=== PATIENT | male | born 1980 | race Caucasian/White ===

== ENCOUNTER 2017-05-01 07:29 | Emergency (ER) | payer OTHER ==
[2017-05-01] MEDS ORDERED: Azithromycin TAB* 250 MG PO ONE (08:15)
[2017-05-01] MEDS ORDERED: cefTRIAXone VIAL(*) 250 MG VIAL IM ONE (08:15)
--- NOTE | 2017-05-01 08:24 | UC ---
UC General HPI - HPI Summary HPI Summary: pt is c/o sudden fatigue, achy and fever 101 this am. also notes a "discomfort" with urination with this. states "not pain or burning" jusy a vague discomfort. aslo, has noticed "a crwamy white penile discharge" a couple of times within the past 2 weeks but none now. denies any new sexual partners plus risk/concern for std but has read that you can have this it have it be dormant. denies any penile lesions, abd pain, v/d. - History of Current Complaint Chief Complaint: UCGU Stated Complaint: FEVER,NAUSEA Time Seen by Provider: 05/01/17 07:51 Hx Obtained From: Patient Onset/Duration: Gradual Onset Onset Severity: Mild Pain Intensity: 2 Aggravating: nothing Alleviating: nothing Associated Signs & Symptoms: Positive: Dysuria, Fever, Nausea. Negative: Abdominal Pain, Cough, Diarrhea, Diaphoresis, Headache, SOB, Vomiting Similar Episode/Dx as: NA - Allergy/Home Medications Allergies/Adverse Reactions: Allergies Allergy/AdvReac Type Severity Reaction Status Date / Time Penicillins Allergy Unknown Verified 05/01/17 07:43 Reaction Details molds Allergy Wheezing Uncoded 05/01/17 07:42 PMH/Surg Hx/FS Hx/Imm Hx Previously Healthy: Yes Other History Of: Negative For: HIV, Hepatitis B, Hepatitis C - Surgical History Surgical History: Yes Surgery Procedure, Year, and Place: Hernia surgery as an infant.; vasectomy 2011 - Family History Known Family History: Positive: None - Social History Occupation: Student Lives: With Family Alcohol Use: None Substance Use Type: None, Prescribed Smoking Status (MU): Never Smoked Tobacco - Immunization History Most Recent Influenza Vaccination: no Vaccination Up to Date: Yes Review of Systems Constitutional: Fever, Chills, Fatigue Skin: Negative Eyes: Negative ENT: Negative Respiratory: Negative Cardiovascular: Negative Gastrointestinal: Negative Genitourinary: Dysuria, Vaginal/Penile Discharge Motor: Negative Neurovascular: Negative Musculoskeletal: Negative Neurological: Negative Is Patient Immunocompromised?: No All Other Systems Reviewed And Are Negative: Yes Physical Exam Triage Information Reviewed: Yes Appearance: Well-Appearing Vital Signs: Initial Vital Signs Temp 99.5 F 05/01/17 07:44 Pulse 105 05/01/17 07:44 Resp 20 05/01/17 07:44 BP 98/72 05/01/17 07:44 Pulse Ox 98 02/19/18 07:44 Vital Signs Reviewed: Yes Eye Exam: Normal ENT: Positive: Normal ENT inspection Neck: Positive: Supple, Nontender, No Lymphadenopathy Respiratory Exam: Normal Respiratory: Positive: Lungs clear, Normal breath sounds, No respiratory distress Cardiovascular: Positive: No Murmur, Pulses Normal, Tachycardia Abdomen Description: Positive: Nontender, No Organomegaly, Soft. Negative: CVA Tenderness (R), CVA Tenderness (L), Distended, Guarding Bowel Sounds: Positive: Present Neurological: Positive: Alert Psychological: Positive: Age Appropriate Behavior Skin Exam: Normal - : testicles down and non tender, cords non tender, inguinal canals patent, no penile lesions or urethral discharge. no inguinal adenopathy. Diagnostics - Laboratory Diagnostic Studies Completed/Ordered: rapid flu=neg. u/a= + leuks with culture pending. gc/chlamydia are pending. Course/Dx - Course Course Of Treatment: exam is unremarkable. pt denies risk for std but would like testing. pt agrees to presumptive tx for gc/chlamydia given hx and pe. the pcn allergy is an "allergy to mold". pt has taken amoxicillin with no reactions in his past thus will tx with zithromax po and rocephine im. rapid flu=neg. urineculture/gc/chalmydia pending. - Differential Dx - Multi-Symptom Provider Diagnoses: Urethritis. Discharge - Discharge Plan Condition: Stable Disposition: HOME Patient Education Materials: Nonspecific Urethritis in Men (ED) Referrals: Jason Salinas MD [Medical Doctor] - 5 Days
[2017-05-01] MEDS ORDERED: Lidocaine 1% MPF* 2 ML VIAL ONE (09:33)
[2017-05-01 09:59] VITALS: BP 115/70
--- NOTE | 2017-05-03 14:40 | ED ---
Progress - Progress Note Progress Note: I have called in keflex antibiotic for possible E coli uti. Pt will need to f/u with pcp to see if urology if needed. Course/Dx - Course Course Of Treatment: exam is unremarkable. pt denies risk for std but would like testing. pt agrees to presumptive tx for gc/chlamydia given hx and pe. the pcn allergy is an "allergy to mold". pt has taken amoxicillin with no reactions in his past thus will tx with zithromax po and rocephine im. rapid flu=neg. urineculture/gc/chalmydia pending.
== END 2017-05-01 10:51 | disposition home or self-care (01) ==
LOC: UCCORT 07:29
DX: N34.2 Other urethritis (principal); B96.20 Unspecified Escherichia coli [E. coli] as the cause of diseases classified elsewhere
CPT/HCPCS: 81003; 87077; 87086; 87186; 87491; 87502; 87591; 96372; 99212; A9270-GY; G0463; J0696

== ENCOUNTER 2017-12-22 07:18 | Emergency (ER) | payer OTHER ==
[2017-12-22 07:32] VITALS: BP 131/86
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
== END 2017-12-22 07:58 | disposition home or self-care (01) ==
LOC: UCCORT 07:18
DX: M62.830 Muscle spasm of back (principal); Z88.0 Allergy status to penicillin
CPT/HCPCS: 99212; G0463

== ENCOUNTER 2018-08-04 17:40 | Emergency (ER) | payer OTHER ==
--- OUTSIDE RECORDS SUMMARY | 2018-08-04 18:17 | XMS REPORT | Continuity of Care Document ---
:1980 External Reference #:[id number] Author Name Sammie Sumner Care Team Providers Name Role Phone Troy Faith MD Primary Care Physician Unavailable Payers Date Identification Numbers Payment Provider Subscriber Effective: 2016 Policy Number: [id number] Peña Gordillo PayID: [id number] [address] [place] [address] Advance Directives Description No Information Available Problems Active Problems Provider Date Asthma without status asthmaticus Troy Faith M.D. 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 Tobacco Use Start: Unknown Never Smoked Cigarettes Smoking Status Reviewed: 07/17/18 Never Smoked Cigarettes ETOH Use Rarely consumes alcohol Tobacco Use Start: Unknown Patient has never Chewed tobacco for smoked 15 years Recreational Drug Use Denies Drug Use Exercise Type/Frequency Exercises sporadically Allergies, Adverse Reactions, Alerts Active Allergies Reaction Severity Comments Date Penicillin hasnt been given to him due to history 05/02/2016 of allergy to mold Medications Active Medications SIG Qnty Indications Ordering Provider Date Baclofen take 1 tablet by 30tabs M54.5 Cristino Lam, 02/15/2018 10mg Tablets mouth twice M.D. daily Ibuprofen 4 po as needed 60tabs Cristino Lam III 200mg Tablets E., MD Singulair 1 by mouth every 30tabs Cristino Lam, 10mg Tablets day M.D. Ventolin HFA 2 puffs by mouth 8gm Cristino Lam, four times a day M.D. 108(90Base) mcg/Act as needed Aerosol Symbicort 2 puff twice a 6gm Cristino Lam, day M.D. 160-4.5mcg/Act Aerosol Tizanidine HCL take 1 tablet by 30tabs Cristino Lam, 4mg mouth every 8 M.D. Tablets hours as needed Multi Vitamin 1 by mouth every Unknown Tablets day History Medications Kratom 1 and 1/2 teaspoons Deny Ridley, 05/02/2016 - Powder daily. 02/15/2018 Greenvibrance uses once daily. Unknown - 02/15/2018 Aleve as needed Unknown - 220mg Tablets 02/15/2018 Albuterol Sulfate 1-2 puffs every 4 Unknown - 2mg Tablets hours as needed sob 02/15/2018 Ketotifen Fumarate Instill 1-2 Drops Unknown - 0.025% In Each Eye Q 12 H 02/15/2018 Solution prn Tizanidine HCL 1 by mouth twice Unknown - 4mg Capsules daily prn 02/19/2018 Cyclobenzaprine HCL take 1 tab by mouth Unknown - 10mg 2-3 times a day as 02/19/2018 Tablets needed Immunizations Description No Information Available Vital Signs Date Vital Result Comment 07/17/2018 9:03am Height 70 inches 5'10" Weight 183.00 lb Heart Rate 84 /min BP Systolic Sitting 126 mmHg left upper arm regular BP Diastolic Sitting 84 mmHg left upper arm regular Respiratory Rate 12 /min O2 % BldC Oximetry 97 % BMI (Body Mass Index) 26.3 kg/m2 06/08/2018 2:41pm Height 70 inches 5'10" Weight 185.00 lb Heart Rate 72 /min BP Systolic Sitting 120 mmHg BP Diastolic Sitting 76 mmHg Respiratory Rate 18 /min Pain Level 5 O2 % BldC Oximetry 98 % BMI (Body Mass Index) 26.5 kg/m2 05/08/2018 4:27pm Height 69 inches 5'9" Weight 188.00 lb Heart Rate 75 /min BP Systolic Sitting 117 mmHg BP Diastolic Sitting 74 mmHg O2 % BldC Oximetry 97 % BMI (Body Mass Index) 27.8 kg/m2 04/11/2018 4:31pm Height 69 inches 5'9" Weight 185.00 lb Heart Rate 82 /min BP Systolic Sitting 116 mmHg BP Diastolic Sitting 78 mmHg Body Temperature 97.7 F O2 % BldC Oximetry 98 % BMI (Body Mass Index) 27.3 kg/m2 03/29/2018 4:30pm Height 69 inches 5'9" Weight 186.50 lb Heart Rate 68 /min BP Systolic Sitting 122 mmHg reg adult cuff left arm BP Diastolic Sitting 90 mmHg reg adult cuff left arm Respiratory Rate 16 /min O2 % BldC Oximetry 98 % at rest on room air BMI (Body Mass Index) 27.5 kg/m2 02/15/2018 4:23pm Height 69 inches 5'9" Weight 181.00 lb Heart Rate 73 /min BP Systolic Sitting 120 mmHg BP Diastolic Sitting 80 mmHg Body Temperature 98.2 F O2 % BldC Oximetry 96 % BMI (Body Mass Index) 26.7 kg/m2 07/07/2017 7:16am Height 70 inches 5'10" Weight 188.00 lb Heart Rate 64 /min BP Systolic Sitting 112 mmHg BP Diastolic Sitting 82 mmHg Respiratory Rate 14 /min O2 % BldC Oximetry 98 % BMI (Body Mass Index) 27.0 kg/m2 Neck Circumference in inches 15.75 05/02/2016 10:44am Height 70 inches 5'10" Weight 179.50 lb Heart Rate 72 /min BP Systolic Sitting 102 mmHg BP Diastolic Sitting 74 mmHg Respiratory Rate 20 /min Pain Level 2 O2 % BldC Oximetry 98 % BMI (Body Mass Index) 25.8 kg/m2 Results Test Date Facility Test Result H/L Range Note CBC Auto Diff 05/26/2018 [facility] White Blood 5.9 10^3/uL N 3.5-10.[address] [place] [address] [phone] Red Blood Count 4.95 10^6/uL N 4.18-5.48 Hemoglobin 15.3 g/dL N 14.0-18.0 Hematocrit 45 % N 36-46 Mean Corpuscular Volume 91 fL N 80-94 Mean Corpuscular Hemoglobin 31 pg N 27-31 Mean Corpuscular HGB Conc 34 g/dL N 31-36 Red Cell Distribution Width 13 % N 10.5-15 Platelet Count 251 10^3/uL N 150-450 Mean Platelet Volume 6.9 fL Low 7.4-10.4 Abs Neutrophils 3.1 10^3/uL N 1.5-7.7 Abs Lymphocytes 2.0 10^3/uL N 1.0-4.8 Abs Monocytes 0.5 10^3/uL N 0-0.8 Abs Eosinophils 0.2 10^3/uL N 0-0.6 Abs Basophils 0 10^3/uL N 0-0.2 Abs Nucleated RBC 0 10^3/uL Granulocyte % 53.3 % Lymphocyte % 33.8 % Monocyte % 8.7 % Eosinophil % 3.4 % Basophil % 0.8 % Nucleated Red Blood Cells % 0.1 Comp Metabolic Panel 05/26/2018 [facility] Sodium 138 mmol/L N 135-145 [address] [place] [address] [phone] Potassium 4.6 mmol/L N 3.5-5.0 Chloride 104 mmol/L N 101-111 Co2 Carbon Dioxide 26 mmol/L N 22-32 Anion Gap 8 mmol/L N 2-11 Glucose 99 mg/dL N 70-100 Blood Urea Nitrogen 14 mg/dL N 6-24 Creatinine 1.15 mg/dL N 0.67-1.17 BUN/Creatinine Ratio 12.2 N 8-20 Calcium 9.6 mg/dL N 8.6-10.3 Total Protein 7.4 g/dL N 6.4-8.9 Albumin 4.8 g/dL N 3.2-5.2 Globulin 2.6 g/dL N 2-4 Albumin/Globulin Ratio 1.8 N 1-3 Total Bilirubin 0.40 mg/dL N 0.2-1.0 Alkaline Phosphatase 68 U/L N 34-104 Alt 39 U/L N 7-52 Ast 25 U/L N 13-39 Egfr Non- 72.0 >60 Egfr 87.1 >60 1 Laboratory test finding 05/26/2018 [facility] Amylase 46 U/L N 29-[address] [place] [place] [address] [phone] Erythrocyte Sed Rate 1 mm/Hr N 0-15 2 C Reactive Protein < 1.00 mg/L N <8.01 Lipid Profile 05/26/2018 [facility] Triglycerides 111 mg/dL 3 (Trig/Chol/HDL) [address] [place] [address] [phone] Cholesterol 137 mg/dL 4 HDL Cholesterol 47.6 mg/dL 5 LDL Cholesterol 67 mg/dL 6 1 Because ethnic data is not always readily available, this report includes an eGFR for both -Americans and non- Americans. The National Kidney Disease Education Program (NKDEP) does not endorse the use of the MDRD equation for patients that are not between the ages of 18 and 70, are , have extremes of body size, muscle mass, or nutritional status, or are non- or non-. According to the National Kidney Foundation, irrespective of diagnosis, the stage of the disease is based on the level of kidney function: Stage Description GFR(mL/min/1.73 m(2)) 1 Kidney damage with normal or decreased GFR 90 2 Kidney damage with mild decrease in GFR 60-89 3 Moderate decrease in GFR 30-59 4 Severe decrease in GFR 15-29 5 Kidney failure <15 (or dialysis) 2 Test Performed by: [facility] [address] [place] [id number] Fabiano Conley M.D. Director of Laboratory 3 Desirable: <150 Borderline High: 150-199 High: 200-499 Very High: >500 4 Desirable: <200 Borderline High: 200-239 High: >239 5 Low: <40 Desirable: 40-60 High: >60 6 Desirable: <100 Near Optimal: 100-129 Borderline High: 130-159 High: 160-189 Very High: >189 Procedures Date Code Description Status 06/08/2018 38360 Rad Exam; Hand Comp Completed 05/02/2016 82542 Rad Exam; Both Knees, Standing Ap Completed Encounters Type Date Location Provider Dx Diagnosis Office Visit 07/17/2018 Pulmonology And Stephania G47.33 Obstructive sleep 9:30a [facility]z apnea (adult) [facility] (pediatric) J45.909 Unspecified asthma, uncomplicated Office Visit 06/08/2018 2:30p Orthopedic [facility] S62.337P Disp fx of nk Services Of Lior Romero MD of [facility] bone, AT [place] l hand, subs for fx w aidan M79.642 Pain in left hand Office Visit 05/08/2018 4:20p [facility] Internal Cristino Toussaint R07.89 Other chest pain Marisela Puente Office Visit 04/11/2018 4:20p [facility] Internal Cristino Toussaint R10.13 Epigastric pain Marisela [place] Z13.220 Encounter for screening for lipoid disorders Office Visit 03/29/2018 4:20p [facility] Internal Cristino Toussaint R07.89 Other chest Medicine Kady Lam M.D. pain [place] J45.909 Unspecified asthma, uncomplicated Office Visit 02/15/2018 4:20p [facility] Internal Troy Faith, Z00.01 Encounter for Medicine - Marisela general adult [address] medical exam w abnormal findings J45.909 Unspecified asthma, uncomplicated R41.840 Attention and concentration deficit M54.5 Low back pain Z13.220 Encounter for screening for lipoid disorders Z13.1 Encounter for screening for diabetes mellitus Office Visit 07/07/2017 7:30a Pulmonology And Yulia G47.33 Obstructive sleep Sleep [facility] Of MD Amarilis apnea (adult) [facility] (pediatric) J45.909 Unspecified asthma, uncomplicated Office Visit 05/02/2016 Orthopedic Deny Guerra M22.2x2 Patellofemoral 10:30a Services Of Lior Ridley MD disorders, left knee AT [place] M22.2x1 Patellofemoral disorders, right knee Plan of Treatment 07/17/2018 - Stephania Narvaez NPG47.33 Obstructive sleep apnea (adult) ( pediatric)New Orders:Sleep-Homecare, Ordered: 07/17/18J45.909 Unspecified asthma , uncomplicatedNew Orders:PFTW/Spirometry Vol Pre/Post Bronchdilat Dlco Complete , Ordered: 07/17/18
--- OUTSIDE RECORDS SUMMARY | 2018-08-04 18:17 | XMS REPORT | Continuity of Care Document ---
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 Use Start: Unknown Never Smoked Cigarettes [...] H/L Range Note CBC Auto Diff 05/26/2018 [facility] White Blood 5.9 10^3/uL N 3.5-10.[address] [place] [address] [phone] Red Blood Count 4.95 10^6/uL N 4.18-5.48 [...] Cells % 0.1 Comp Metabolic Panel 05/26/2018 [facility] Sodium 138 mmol/L N 135-145 [address] [place] [address] [phone] Potassium 4.6 mmol/L N 3.5-5.0 Chloride 104 [...] 87.1 >60 1 Laboratory test finding 05/26/2018 [facility] Amylase 46 U/L N 29-[address] [place] [address] [phone] Erythrocyte Sed Rate 1 mm/Hr N 0-15 2 C Reactive Protein < 1.00 mg/L N <8.01 Lipid Profile 05/26/2018 [facility] Triglycerides 111 mg/dL 3 (Trig/Chol/HDL) [address] [place] [address] [phone] Cholesterol 137 mg/dL 4 HDL Cholesterol 47.6 [...] <15 (or dialysis) 2 Test Performed by: [facility] [address] [place] [address] Fabiano Conley M.D. Director of Laboratory 3 Desirable: <150 Borderline High: 150-199 High: 200-499 Very High: >500 4 Desirable: <200 Borderline High: 200-239 High: >239 5 Low: <40 Desirable: 40-60 High: >60 6 Desirable: <100 Near Optimal: 100-129 Borderline High: 130-159 High: 160-189 Very High: >189 Procedures Date Code Description Status 06/08/2018 48676 Rad Exam; Hand Comp Completed 05/02/2016 81316 Rad Exam; Both Knees, Standing Ap Completed Encounters Type Date Location Provider Dx Diagnosis Office Visit 06/08/2018 Orthopedic Austen Romero, S62.337P Disp fx of nk of 2:30p Services Of Shear Operator Helper AT michael Milner hand, subs for fx w malunion M79.642 Pain in left hand Office Visit 05/08/2018 4:20p [facility] Internal Cristino Toussaint R07.89 Other chest pain Marisela Puente Office Visit 04/11/2018 4:20p [facility] Internal Cristino Toussaint R10.13 Epigastric pain [place] Z13.220 Encounter for screening for lipoid disorders Office Visit 03/29/2018 4:20p [facility] Internal Cristino Toussaint R07.89 Other chest Urszula - Marisela Lam pain [place] J45.909 Unspecified asthma, uncomplicated Office Visit 02/15/2018 4:20p [facility] Internal Troy Pachikara, Z00.01 Encounter for Medicine - Marisela general adult [address] medical exam w abnormal findings J45.909 Unspecified asthma, uncomplicated R41.840 Attention and concentration deficit M54.5 Low back pain Z13.220 Encounter for screening for lipoid disorders Z13.1 Encounter for screening for diabetes mellitus Office Visit 07/07/2017 7:30a Pulmonology And Yulia G47.33 Obstructive sleep Sleep Services Of MD Amarilis apnea (adult) [facility] (pediatric) J45.909 Unspecified asthma, uncomplicated Office Visit 05/02/2016 Orthopedic Deny M M22.2x2 Patellofemoral 10:30a Services Of Lior Ridley MD disorders, left knee AT [place] M22.2x1 Patellofemoral disorders, right knee Plan of Treatment 07/17/2018 - Stephania Narvaez NPG47.33 Obstructive sleep apnea (adult) ( pediatric)Follow up:1 yearRecommendations:If you have any sleepiness while driving you MUST avoid operating a vehicle or machinery. If you have difficulty with your equipment, or need to replace your mask or hoses, please contact your homecare agency. If you have any further questions, please call the [facility] at [phone] Unspecified asthma, uncomplicatedNew Orders:PFTW/Spirometry Vol Pre/Post Bronchdilat Dlco Complete, Ordered: 07/17/18
[2018-08-04 18:21] VITALS: BP 137/82
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
== END 2018-08-04 18:53 | disposition home or self-care (01) ==
LOC: UCCORT 17:40
DX: M54.5 Low back pain (principal); S46.812A Strain of other muscles, fascia and tendons at shoulder and upper arm level, left arm, initial encounter; G89.29 Other chronic pain; Z88.0 Allergy status to penicillin; Z91.09 Other allergy status, other than to drugs and biological substances; X58.XXXA Exposure to other specified factors, initial encounter; Y92.9 Unspecified place or not applicable
CPT/HCPCS: 99211; G0463

== ENCOUNTER 2019-02-16 13:25 | Emergency (ER) | payer OTHER ==
--- OUTSIDE RECORDS SUMMARY | 2019-02-16 14:05 | XMS REPORT | Continuity of Care Document ---
:1980 External Reference #:[id number] Author Name Joe Aquino, DO Address [address] [place] [address] Care Team Providers Name Role Phone Jameson Vitale FNP Care Team Information Physical Chemist [phone] Problems Description No Information Available Social History Type Date Description Comments Sex Unknown Tobacco Use Start: Unknown Patient has never smoked Smoking Status Reviewed: 12/07/18 Patient has never smoked Allergies, Adverse Reactions, Alerts Active Allergies Reaction Severity Comments Date Penicillin 12/07/2018 Medications Active Medications SIG Qnty Indications Ordering Provider Date Montelukast Sodium Cristino Lam MD 10mg Tablets Omeprazole TK One C PO qd Unknown 20mg Capsules Bacljosé antonio take 1 tablets 30tabs Unknown 10mg Tablets by mouth twice a day as needed Symbicort Inl 2 PFS PO bid Unknown 160-4.5mcg/Act Aerosol Tizanidine HCL TK 1 T PO Q 8 H Unknown 4mg prn Tablets Albuterol Sulfate HFA Inhale 2 Puffs Unknown PO qid prn 108(90Base) mcg/Act Aerosol Multivitamins Unknown Immunizations Description No Information Available Vital Signs Date Vital Result Comment 12/07/2018 2:43pm Height 70 inches 5'10" Weight 183.00 lb BP Systolic 128 mmHg BP Diastolic 82 mmHg Heart Rate 64 /min BMI (Body Mass Index) 26.3 kg/m2 Results Test Acquired Date Facility Test Result H/L Range Note Laboratory test 01/04/2019 [facility] Clotest SEE RESULT 1, 2 finding BELOW Surgical Pathology 01/04/2019 [facility] Surgical SEE RESULT 3, 4 Pathology BELOW PDFReport [id number] <SEE NOTE> 1 [id number] 2 SEE RESULT BELOW Name: AUSTEN GORDILLO : [address]: Joe Aquino DO Acct: [id number] Unit: [id number] AGE: 38 Location: [facility] Re01/04/19 SEX: M Status: REG REF SPEC: [id number] CORY: 01/04/19-[address]: Joe Aquino DO REQ: [id number] RECD: 01/04/19 STATUS: CAROLYN ESPINO DR: Cristino Lam III, MD _ SOURCE: GAS ANTRUM SPDESC: ORDERED: Clotest COMMENTS: [id number] Procedure Result Reported Site Clotest Final 01/05/19820 ML Clotest Negative * ML - Main Lab . END OF REPORT DEPARTMENT OF PATHOLOGY, [address] [place] [address] Fabiano Conley M.D. Director [facility] # [id number] SEE RESULT BELOW Name: AUSTEN GORDILLO : [address]: Joe Aquino DO Acct: [id number] Unit: [id number] AGE: 38 Location: [facility] Re01/04/19 SEX: M Status: REG REF SPEC: [id number] CORY: 01/04/19-[address]: Joe Aquino DO REQ: [id number] RECD: 01/04/19 STATUS: CAROLYN ESPINO DR: Cristino Lam III, MD _ SOURCE: GAS ANTRUM SPDES: ORDERED: Clotest COMMENTS: [id number] Procedure Result Reported Site Clotest Final 01/05/19- 820 ML Clotest Negative * ML - Main Lab . END OF REPORT DEPARTMENT OF PATHOLOGY, [address] [place] [address] Fabiano Conley M.D. Director [facility] # [id number] 3 [id number] 4 SEE RESULT BELOW Name: AUSTEN GORDILLO : [address]: Joe Aquion DO Acct: [id number] Unit: [id number] AGE: 38 Location: [facility] Re01/04/19 SEX: M Status: DEP REF SPEC: [id number] CORY: 01/04/19-1214 [facility] DR: Joe Aquino DO REQ: [id number] RECD: 01/04/19 STATUS: KYLE ESPINO DR: Jameson Vitale BLADE FILER _ ORDERED: LEVEL 4/2 COMMENTS: [id number] FINAL DIAGNOSIS 1. Small bowel, duodenum, biopsy: -- Small bowel mucosa with normal villous architecture and no significant pathologic abnormality. 2. Esophagus, Schatzki's Ring, biopsy: -- Superficial squamous epithelium with mild nonspecific chronic inflammation. -- No evidence of reflux or allergic/eosinophilic esophagitis identified. -- No glandular component identified. CLINICAL HISTORY Abdominal pain PRE-OPERATIVE DIAGNOSIS 1) Rule out celiac, 2) rule out eosinophilic esophagitis POST-OPERATIVE DIAGNOSIS EGD: esophagus-normal, biopsy rule out eosinophilic esophagitis; gastric- normal; duodenum-normal CONTINUED ON NEXT PAGE DEPARTMENT OF PATHOLOGY, [facility] [employer] [place] [address] Fabiano Conley M.D. Director [facility] # [id number] GROSS DESCRIPTION 1. The specimen is received in formalin labeled, Biopsy Duodenum, and consists of two almanza-pink irregular to polypoid soft tissue fragments measuring 0.3 x 0.3 x 0.2 cm and 0.4 x 0.2 x 0.2 cm which are entirely submitted in one cassette. 2. The specimen is received in formalin labeled, Biopsy Schatzki's Ring, and consists of a 1.0 x 0.3 x 0.1 cm aggregate of colon-white irregular to polypoid soft tissue fragments which is entirely submitted in one cassette. Signed by and Reported on: Fabiano Conley MD 1237 END OF REPORT DEPARTMENT OF PATHOLOGY, [facility] [employer] [place], [place] [address] Fabiano Conley M.D. Director [facility] # [id number] SEE RESULT BELOW Name: AUSTEN GORDILLO : [address]: Joe Aquino DO Acct: [id number] Unit: [id number] AGE: 38 Location: [facility] Re01/04/19 SEX: M Status: DEP REF SPEC: [id number] CORY: 01/04/191214 SUBM DR: Joe Aquino DO REQ: [id number] RECD: 01/04/19 STATUS: KYLE ESPINO DR: Jameson Vitale BLADE FILER _ ORDERED: LEVEL 4/2 COMMENTS: [id number] FINAL DIAGNOSIS 1. Small bowel, duodenum, biopsy: -- Small bowel mucosa with normal villous architecture and no significant pathologic abnormality. 2. Esophagus, Schatzki's Ring, biopsy: -- Superficial squamous epithelium with mild nonspecific chronic inflammation. -- No evidence of reflux or allergic/eosinophilic esophagitis identified. -- No glandular component identified. CLINICAL HISTORY Abdominal pain PRE-OPERATIVE DIAGNOSIS 1) Rule out celiac, 2) rule out eosinophilic esophagitis POST-OPERATIVE DIAGNOSIS EGD: esophagus-normal, biopsy rule out eosinophilic esophagitis; gastric- normal; duodenum-normal CONTINUED ON NEXT PAGE DEPARTMENT OF PATHOLOGY, [address] [place] [address] Fabiano Conley M.D. Director [facility] # [id number] GROSS DESCRIPTION 1. The specimen is received in formalin labeled, Biopsy Duodenum, and consists of two almanza-pink irregular to polypoid soft tissue fragments measuring 0.3 x 0.3 x 0.2 cm and 0.4 x 0.2 x 0.2 cm which are entirely submitted in one cassette. 2. The specimen is received in formalin labeled, Biopsy Schatzki's Ring, and consists of a 1.0 x 0.3 x 0.1 cm aggregate of colon-white irregular to polypoid soft tissue fragments which is entirely submitted in one cassette. Signed by and Reported on: Fabiano Conley MD 1237 END OF REPORT DEPARTMENT OF PATHOLOGY, [address] [place] [address] Fabiano Conley M.D. Director [facility] # [id number] SEE RESULT BELOW Name: AUSTEN GORDILLO Laly : [address]: Joe Aquino DO Acct: [id number] Unit: [id number] AGE: 38 Location: [facility] Re01/04/19 SEX: M Status: DEP REF SPEC: [id number] CORY: 01/04/19-[address]: Joe Aquino DO REQ: [id number] RECD: 01/04/19 STATUS: KYLE ESPINO DR: Jameson Vitale BLADE FILER _ ORDERED: LEVEL 4/2 COMMENTS: [id number] FINAL DIAGNOSIS 1. Small bowel, duodenum, biopsy: -- Small bowel mucosa with normal villous architecture and no significant pathologic abnormality. 2. Esophagus, Schatzki's Ring, biopsy: -- Superficial squamous epithelium with mild nonspecific chronic inflammation. -- No evidence of reflux or allergic/eosinophilic esophagitis identified. -- No glandular component identified. CLINICAL HISTORY Abdominal pain PRE-OPERATIVE DIAGNOSIS 1) Rule out celiac, 2) rule out eosinophilic esophagitis POST-OPERATIVE DIAGNOSIS EGD: esophagus-normal, biopsy rule out eosinophilic esophagitis; gastric- normal; duodenum-normal CONTINUED ON NEXT PAGE DEPARTMENT OF PATHOLOGY, [address] [place] [address] Fabiano Conley M.D. Director [facility] # [id number] GROSS DESCRIPTION 1. The specimen is received in formalin labeled, Biopsy Duodenum, and consists of two almanza-pink irregular to polypoid soft tissue fragments measuring 0.3 x 0.3 x 0.2 cm and 0.4 x 0.2 x 0.2 cm which are entirely submitted in one cassette. 2. The specimen is received in formalin labeled, Biopsy Schatzki's Ring, and consists of a 1.0 x 0.3 x 0.1 cm aggregate of colon-white irregular to polypoid soft tissue fragments which is entirely submitted in one cassette. Signed by and Reported on: Fabiano Conley MD 1237 END OF REPORT DEPARTMENT OF PATHOLOGY, [address] [place] [address] Fabiano Conley M.D. Director [facility] # [id number] Procedures Description No Information Available Medical Devices Description No Information Available Encounters Type Date Location Provider Dx Diagnosis Office Visit 12/07/2018 Gastroenterology Joe Aquino, K21.9 Gastro- esophageal 3:00p [facility] DO reflux disease without esophagitis R13.14 Dysphagia, pharyngoesophageal phase R10.13 Epigastric pain Assessments Date Code Description Provider 12/07/2018 K21.9 Gastro-esophageal reflux disease without Joe Aquino, DO esophagitis 12/07/2018 R13.14 Dysphagia, pharyngoesophageal phase Joe Aquino DO 12/07/2018 R10.13 Epigastric pain Joe Aquino DO Plan of Treatment No Information Available Functional Status Description No Information Available Mental Status Description No Information Available Referrals Description No Information Available
--- OUTSIDE RECORDS SUMMARY | 2019-02-16 14:05 | XMS REPORT | Continuity of Care Document ---
:1980 External Reference #:[id number] Author Name Joe Aquino, DO Address [address] [place] [address] Care Team Providers Name Role Phone Jameson Vitale FNP Care Team Information High Heel Builder [phone] Problems Description No Information Available Social History [...] Result H/L Range Note Laboratory test 01/04/2019 [facility] Clotest SEE RESULT 1, 2 finding BELOW Surgical Pathology 01/04/2019 [facility] Surgical SEE RESULT 3, 4 Pathology BELOW PDFReport [id number] <SEE NOTE> 1 [id number] 2 SEE RESULT BELOW Name: AUSTEN GORDILLO : [address]: Joe Aquino DO Acct: [id number] Unit: [id number] AGE: 38 Location: [facility] Re01/04/19 SEX: M Status: REG REF SPEC: [id number] CORY: 01/04/19-[address]: Joe Aquino DO REQ: [id number] RECD: 01/04/19 STATUS: CAROLYN ESPINO DR: Cristino Lam III, MD _ SOURCE: GAS ANTRUM SPDESC: ORDERED: Clotest COMMENTS: [id number] Procedure Result Reported Site Clotest Final 01/05/19820 ML Clotest Negative * ML - Main Lab . END OF REPORT DEPARTMENT OF PATHOLOGY, [address] [place] [address] Fabiano Conley M.D. Director [facility] # [id number] SEE RESULT BELOW Name: AUSTEN GORDILLO : [address]: Joe Aquino DO Acct: [id number] Unit: [id number] AGE: 38 Location: [facility] Re01/04/19 SEX: M Status: REG REF SPEC: [id number] CORY: 01/04/19-[address]: Joe Aquino DO REQ: [id number] RECD: 01/04/19 STATUS: CAROLYN ESPINO DR: Cristino Lam III, MD _ SOURCE: GAS ANTRUM SPDES: ORDERED: Clotest COMMENTS: [id number] Procedure Result Reported Site Clotest Final 01/05/19- 820 ML Clotest Negative * ML - Main Lab . END OF REPORT DEPARTMENT OF PATHOLOGY, [address] [place] [address] Fabiano Conley M.D. Director [facility] # [id number] 3 [id number] SEE RESULT BELOW Name: AUSTEN GORDILLO : [address]: Joe Aquino DO Acct: [id number] Unit: [id number] AGE: 38 Location: [facility] Re01/04/19 SEX: M Status: DEP REF SPEC: [id number] CORY: 01/04/19-1214 [facility] DR: Joe Aquino DO REQ: [id number] RECD: 01/04/19 STATUS: KYLE ESPINO DR: Jameson Vitale FILM VAULT SUPERVISOR _ ORDERED: LEVEL 4/2 COMMENTS: [id number] FINAL DIAGNOSIS 1. Small bowel, duodenum, biopsy: [...] CONTINUED ON NEXT PAGE DEPARTMENT OF PATHOLOGY, [facility] [employer] [place] [address] Fabiano Conley M.D. Director [facility] # [id number] GROSS DESCRIPTION 1. The specimen is received [...] 1237 END OF REPORT DEPARTMENT OF PATHOLOGY, [facility] [place], [place] [address] Fabiano Conley M.D. Director [facility] # [id number] SEE RESULT BELOW Name: AUSTEN GORDILLO : [address]: Joe Aquino DO Acct: [id number] Unit: [id number] AGE: 38 Location: [facility] Re01/04/19 SEX: M Status: DEP REF SPEC: [id number] CORY: 01/04/1912[address]BM [address]: Joe Aquino DO REQ: [id number] RECD: 01/04/19 STATUS: KYLE ESPINO DR: Jameson Vitale FILM VAULT SUPERVISOR _ ORDERED: LEVEL 4/2 COMMENTS: [id number] FINAL DIAGNOSIS 1. Small bowel, duodenum, biopsy: [...] CONTINUED ON NEXT PAGE DEPARTMENT OF PATHOLOGY, [address] [place] [address] Fabiano Conley M.D. Director [facility] # [id number] GROSS DESCRIPTION 1. The specimen is received [...] 1237 END OF REPORT DEPARTMENT OF PATHOLOGY, [address] [place] [address] Fabiano Conley M.D. Director [facility] # [id number] SEE RESULT BELOW Name: AUSTEN GORDILLO Laly : [address]: Joe Aquino DO Acct: [id number] Unit: [id number] AGE: 38 Location: [facility] Re01/04/19 SEX: M Status: DEP REF SPEC: [id number] CORY: 01/04/19-[address]: Joe Aquino DO REQ: [id number] RECD: 01/04/19 STATUS: KYLE ESPINO DR: Jameson Vitale FILM VAULT SUPERVISOR _ ORDERED: LEVEL 4/2 COMMENTS: [id number] FINAL DIAGNOSIS 1. Small bowel, duodenum, biopsy: [...] CONTINUED ON NEXT PAGE DEPARTMENT OF PATHOLOGY, [address] [place] [address] Fabiano Conley M.D. Director [facility] # [id number] GROSS DESCRIPTION 1. The specimen is received [...] 1237 END OF REPORT DEPARTMENT OF PATHOLOGY, [address] [place] [address] Fabiano Conley M.D. Director [facility] # [id number] Procedures Description No Information Available Medical Devices Description No Information Available Encounters Type Date Location Provider Dx Diagnosis Office Visit 12/07/2018 Gastroenterology Joe Aquino, K21.9 Gastro- esophageal 3:00p [facility] DO reflux disease without esophagitis R13.14 Dysphagia, [...]
[2019-02-16 14:16] VITALS: BP 118/74
--- NOTE | 2019-02-16 14:42 | UC ---
Respiratory Complaint HPI - HPI Summary HPI Summary: awoke with subjective fever cough body aches, cough rib pain---family with similar c/o patient did have a flu vaccine-no nausea or vomiting - History of Current Complaint Chief Complaint: UCGeneralIllness Stated Complaint: COUGH FEVER CHILLS NAUSEA Time Seen by Provider: 02/16/19 14:32 Hx Obtained From: Patient Onset/Duration: Sudden Onset, Lasting Days - 1, Still Present Timing: Constant Pain Intensity: 4 Pain Scale Used: 0-10 Numeric Character: Cough: Nonproductive Aggravating Factors: Deep Breaths, Recumbent Position Alleviating Factors: Nothing Associated Signs And Symptoms: Positive: Chills, URI - Allergies/Home Medications Allergies/Adverse Reactions: Allergies Allergy/AdvReac Type Severity Reaction Status Date / Time Penicillins Allergy Unknown Verified 02/16/19 14:16 Reaction Details molds Allergy Wheezing Uncoded 02/16/19 14:16 Home Medications: Home Medications Gabapentin CAP(*) [Neurontin 100 mg CAP(*)] 300 mg PO TID 02/16/19 [History Confirmed 02/16/19] PMH/Surg Hx/FS Hx/Imm Hx Previously Healthy: No Respiratory History: Asthma GI/ History: Gastroesophageal Reflux Other History Of: Negative For: HIV, Hepatitis B, Hepatitis C - Surgical History Surgical History: Yes Surgery Procedure, Year, and Place: Hernia surgery as an .; vasectomy 2011 , [facility] - Family History Known Family History: Positive: Hypertension, Other - Social History Occupation: Employed Full-time Lives: With Family Alcohol Use: None Substance Use Type: None Smoking Status (MU): Never Smoked Tobacco - Immunization History Most Recent Influenza Vaccination: [id number] Vaccination Up to Date: Yes Review of Systems All Other Systems Reviewed And Are Negative: Yes Constitutional: Positive: Chills, Fatigue Skin: Positive: Negative Eyes: Positive: Negative ENT: Positive: Negative Respiratory: Positive: Cough Cardiovascular: Positive: Negative Gastrointestinal: Positive: Negative Genitourinary: Positive: Negative Motor: Positive: Negative Neurovascular: Positive: Negative Musculoskeletal: Positive: Arthralgia Neurological: Positive: Headache Psychological: Positive: Negative Is Patient Immunocompromised?: No Physical Exam Triage Information Reviewed: Yes Appearance: Well-Appearing, No Pain Distress, Well-Nourished Vital Signs: Initial Vital Signs Temp 98.6 F 12/07/19 14:14 Pulse 83 02/16/19 14:14 Resp 16 02/16/19 14:14 BP 118/74 02/16/19 14:14 Pulse Ox 100 02/16/19 14:14 Vital Signs Reviewed: Yes Eye Exam: Normal Eyes: Positive: Conjunctiva Clear ENT Exam: Normal ENT: Positive: Normal ENT inspection, Hearing grossly normal, Nasal congestion, TMs normal, Uvula midline. Negative: Pharyngeal erythema, Trismus, Muffled voice, Hoarse voice, Sinus tenderness Dental Exam: Normal Neck exam: Normal Neck: Positive: Supple, Nontender Respiratory Exam: Normal Respiratory: Positive: Chest non-tender, Lungs clear, Normal breath sounds, No respiratory distress, No accessory muscle use Cardiovascular Exam: Normal Cardiovascular: Positive: RRR, No Murmur, Pulses Normal, Brisk Capillary Refill Abdominal Exam: Normal Abdomen Description: Positive: Nontender, No Organomegaly, Soft. Negative: CVA Tenderness (R), CVA Tenderness (L) Bowel Sounds: Positive: Present Musculoskeletal Exam: Normal Musculoskeletal: Positive: Strength Intact, ROM Intact, No Edema Neurological Exam: Normal Neurological: Positive: Alert, Muscle Tone Normal Psychological Exam: Normal Skin Exam: Normal Diagnostics - Laboratory Lab Results: negative influenza a/b - Radiology No standard instances Radiology Interpretation Completed By: Radiologist - no cardio pulmonary dz Respiratory Course/Dx - Course Course Of Treatment: rest increase fluids tylenol,ibuprofen for pain follow with pcp prn - Differential Dx/Diagnosis Provider Diagnosis: Acute viral syndrome, URI (upper respiratory infection) Discharge ED - Sign-Out/Discharge Documenting (check all that apply): Patient Departure All imaging exams completed and their final reports reviewed: Yes - Discharge Plan Condition: Stable Disposition: HOME Patient Education Materials: Upper Respiratory Infection (ED), Viral Syndrome ( ED) Referrals: Cristino Lam MD [Primary Care Provider] - If Needed - Billing Disposition and Condition Condition: STABLE Disposition: Home - Attestation Statements Provider Attestation: I was available for consult. This patient was seen by the [facility]. The patient was not presented to, seen by, or examined by me. -Amrita
[2019-02-16 15:07] LABS: Influenza A Molecular NEGATIVE (Negative); Influenza B Molecular NEGATIVE (Negative)
== END 2019-02-16 15:45 | disposition home or self-care (01) ==
LOC: UCEAST 13:25
DX: J06.9 Acute upper respiratory infection, unspecified (principal); R51 Headache; R53.83 Other fatigue; M25.50 Pain in unspecified joint; Z88.0 Allergy status to penicillin; Z91.09 Other allergy status, other than to drugs and biological substances
CPT/HCPCS: 71046; 99211; G0463

== ENCOUNTER 2019-08-29 06:14 | Inpatient (IN) ==
[~2019-08-29 06:14] MED LIST: Lactated Ringers 1000 ml BAG 1,000 ML IV SCH; Vancomycin(*) 1,250 MG in NS 0.9% 250 ml 250 ML IVPB SCH
[2019-08-29] MEDS ORDERED: Bacitracin INJECTION 50,000 UNITS ONE ×2 (06:46→12:02)
[2019-08-29] MEDS ORDERED: Buffered Lidocaine 1% SYRIN 1 ml INTRADERM ONE (07:05)
[2019-08-29] MEDS ORDERED: Remifentanil 2 MG VIAL ONE (07:15)
[2019-08-29] MEDS ORDERED: fentaNYL 250 mcg/5 ml 50 MCG/ML 5 ml VIAL (250 MCG) ONE (07:28)
[2019-08-29] MEDS ORDERED: Midazolam 2 mg/2 ml VIAL 1 mg/ml 2 ml VIAL (2 mg) ONE (07:28)
[2019-08-29] MEDS ORDERED: Rocuronium 50 mg VIAL 10 mg/ml 5 ml VIAL (50 mg) ONE (07:36)
[2019-08-29] MEDS ORDERED: Ketamine HCL 50 mg/ml 10 ml VIAL (500 MG) ONE ×3 (07:36→12:25)
[2019-08-29] MEDS ORDERED: Propofol 10 mg/ml 100 ML BTL 100 ML ONE (08:26)
[2019-08-29] MEDS ORDERED: Dexamethasone IV 4 MG/ML VIAL 1 ml VIAL ONE (08:46)
[2019-08-29] MEDS ORDERED: Naloxone 0.4 mg VIAL 0.4 mg/ml 1 ml VIAL IV PRN (08:47)
[2019-08-29] MEDS ORDERED: Acetaminophen IV 1 GM/100ML 100 ML ONE (10:33)
[2019-08-29] MEDS ORDERED: Succinylcholine 200 mg VIAL 20 mg/ml 10 ml VIAL (200 mg) ONE (12:03)
[2019-08-29] MEDS ORDERED: HYDROmorphone 1 MG/1 ML SYRINGE ONE ×2 (12:05→14:15)
[2019-08-29] MEDS ORDERED: EPHEDrine (Pressors) 50 MG/ML VIAL ONE (12:06)
[2019-08-29] MEDS ORDERED: Ondansetron 4 mg VIAL 2 MG/ML 2 ml VIAL ONE (12:09)
[2019-08-29] MEDS ORDERED: Ondansetron 4 mg VIAL 2 MG/ML 2 ml VIAL IV PRN (13:30)
[2019-08-29] MEDS ORDERED: Magnesium Hydroxide LIQ 30 ML UDC PO PRN (13:30)
[2019-08-29] MEDS: HYDROmorphone 1 MG/1 ML SYRINGE IV PRN ×2 (14:16→14:25)
[2019-08-29] MEDS ORDERED: Albuterol HFA INHALER 8 gm MDI INH PRN (15:26)
[2019-08-29] MEDS: Mometasone/Formoter 200/5 MDI INH SCH (20:27)
[2019-08-30 06:06] LABS: ABS Lymphocytes 1.5 10^3/ul (1.0-4.8); ABS Monocytes 1.3 10^3/ul (0-0.8); Hematocrit 39 % (42-52); Hemoglobin 13.6 g/dL (14.0-18.0); Lymphocyte % 8.5 %; Mean Corpuscular HGB Conc 35 g/dL (31-36); Mean Corpuscular Hemoglobin 31 pg (27-31); Mean Corpuscular Volume 89 fL (80-94); Mean Platelet Volume 6.8 fL (7.4-10.4); Nucleated Red Blood Cells % 0.1; Platelet Count 250 10^3/uL (150-450); Red Blood Count 4.37 10^6 /uL (4.18-5.48); Red Cell Distribution Width 13 % (10-15); White Blood Count 17.3 10^3/uL (3.5-10.8)
[2019-08-30 06:22] LABS: BUN/Creatinine Ratio 14.9 (8-20); EGFR Non-African American 83.1 (>60); Potassium 4.4 mmol/L (3.5-5.0)
[2019-08-30 06:23] LABS: EGFR African American 100.6 (>60)
[2019-08-30] MEDS: Mometasone/Formoter 200/5 MDI INH SCH (08:19)
[2019-08-30] MEDS ORDERED: Pneumococcal Vac 23-Polyvalent IM ONE (09:00)
[2019-08-30 14:36] LABS: Urine Appearance Clear; Urine Bilirubin Negative (Negative); Urine Blood 1+ (Negative); Urine Color Yellow; Urine Glucose Negative (Negative); Urine Ketones Negative (Negative); Urine Nitrite Negative (Negative); Urine Protein Negative (Negative); Urine Specific Gravity 1.012 (1.010-1.030); Urine Urobilinogen Negative (Negative)
[2019-08-30 14:46] LABS: Urine Bacteria Absent (Absent); Urine Red Blood Cell Trace(0-2/hpf) (Absent); Urine White Blood Cell Trace(0-5/hpf) (Absent)
[2019-08-30 15:51] VITALS: BP 120/72
[2019-08-30] MEDS ORDERED: Ondansetron ODT 4 mg TAB 4 MG TAB SL PRN (17:21)
== END 2019-08-30 17:40 | disposition home or self-care (01) | DRG 304 ==
LOC: AA → INTOOBSV 06:14 → AA 06:14 → SSU 13:31
PROVIDERS: ADMIT Neurological Surgery; ATTEND Hospitalist

== ENCOUNTER 2023-02-25 14:26 | Inpatient (IN) ==
[2023-02-25 18:39] LABS: ABS Basophils 0.1 10^3/uL (0.0-0.1); ABS Lymphocytes 1.7 10^3/uL (1.0-4.8); ABS Monocytes 0.4 10^3/uL (0.0-1.1); ABS Neutrophils 5.8 10^3/uL (1.5-7.6); Eosinophil % 0.4 %; Hematocrit 42.2 % (38-53); Hemoglobin 14.7 g/dL (13.2-16.3); Lymphocyte % 21.6 %; Mean Corpuscular Hemoglobin 31.1 pg (27-33); Mean Corpuscular Hgb Conc 34.9 g/dL (31-36); Mean Corpuscular Volume 89.2 fL (80-97); Mean Platelet Volume 6.6 fL (7.5-11.2); Platelet Count 218 10^3/uL (150-450); Red Blood Count 4.74 10^6/uL (4.06-5.63); Red Cell Distribution Width 12.8 % (12-17)
[2023-02-25 18:53] LABS: Urine Appearance Clear; Urine Bilirubin Negative (Negative); Urine Blood 1+ (Negative); Urine Color Straw; Urine Glucose Negative (Negative); Urine Ketones Negative (Negative); Urine Nitrite Negative (Negative); Urine Protein Negative (Negative); Urine Specific Gravity 1.005 (1.002-1.030); Urine Urobilinogen Negative (Negative)
[2023-02-25 18:57] LABS: Albumin 4.6 g/dL (3.2-5.2); Albumin/Globulin Ratio 1.7 (1-3); Calcium 9.2 mg/dL (8.6-10.3); Creatinine, Serum 0.98 mg/dL (0.67-1.17); Globulin 2.7 g/dL (2-4); Potassium 3.9 mmol/L (3.5-5.0); Total Bilirubin 0.6 mg/dL (0.2-1.0); Total Protein 7.3 g/dL (6.4-8.9); eGFR CKD-EPI 99.3 (>60)
[2023-02-25 19:02] LABS: Urine Benzodiazepine Screen None Detected (None Detect); Urine Cannabinoids Screen None Detected (None Detect); Urine Opiates Screen None Detected (None Detect)
[2023-02-25 19:03] LABS: Urine Bacteria 1+ (Absent); Urine Red Blood Cell Trace(0-2/hpf) (Absent); Urine White Blood Cell Trace(0-5/hpf) (Absent)
[2023-02-25] MEDS ORDERED: Albuterol HFA INHALER 8 gm MDI INH PRN (19:21)
[2023-02-25 19:45] LABS: TSH Ultra Thyroid Stim Horm 0.94 mcIU/mL (0.34-5.60)
[2023-02-25] MEDS ORDERED: Nicotine GUM 2MG FRUIT FLAVOR PO PRN (20:00)
[2023-02-26] MEDS: Nicotine PATCH 21 MG/24 HR PATCH TRANSDERM SCH (08:35)
[2023-02-27] MEDS: Nicotine PATCH 21 MG/24 HR PATCH TRANSDERM SCH (08:39)
[2023-02-27 10:40] LABS: HDL Cholesterol 52.3 mg/dL
[2023-02-28] MEDS: Nicotine PATCH 21 MG/24 HR PATCH TRANSDERM SCH (09:11)
[2023-03-01] MEDS: Nicotine PATCH 21 MG/24 HR PATCH TRANSDERM SCH (08:32)
[2023-03-02] MEDS: Nicotine PATCH 21 MG/24 HR PATCH TRANSDERM SCH (10:22)
[2023-03-02 11:47] VITALS: BP 84/49
[2023-03-02] MEDS ORDERED: Nicotine Lozenge mini 4 MG LOZNG.MINI MT PRN (15:36)
[2023-03-02] MEDS ORDERED: Nicotine GUM 4MG FRUIT FLAVOR PO PRN (15:37)
[2023-03-03] MEDS: Nicotine PATCH 21 MG/24 HR PATCH TRANSDERM SCH (09:50)
== END 2023-03-03 11:00 | disposition home or self-care (01) | DRG 754 ==
LOC: ED 14:26 → EDHOLD 17:40 → BSU 19:13
PROVIDERS: ADMIT Psychiatry & Neurology Psychiatry; ATTEND Psychiatry & Neurology Psychiatry